=== PATIENT | male | born 1965 | race Caucasian/White ===

== ENCOUNTER 2022-01-21 10:08 | Emergency (ER) | payer BC, MEDICAID ==
[2022-01-21] MEDS ORDERED: Cyclobenzaprine 10 MG Tab PO ONE (10:09)
[2022-01-21 11:30] LABS: AMPHETAMINES,URINE NEGATIVE (NEGATIVE); BARBITURATES,URINE NEGATIVE (NEGATIVE); BENZODIAZEPINE,URINE NEGATIVE (NEGATIVE); MDMA (ECSTASY), URINE NEGATIVE (NEGATIVE); METHADONE,URINE NEGATIVE (NEGATIVE); METHAMPHETAMINES,URINE NEGATIVE (NEGATIVE); OPIATES,URINE NEGATIVE (NEGATIVE); OXYCODONE,URINE NEGATIVE (NEGATIVE); PHENCYCLIDINE,URINE NEGATIVE (NEGATIVE); TCA,URINE NEGATIVE (NEGATIVE)
[2022-01-21] MEDS ORDERED: predniSONE 20 MG Tab PO ONE (11:46)
[2022-01-21] MEDS ORDERED: Cyclobenzaprine 10 MG Tab ONE (11:56)
== END 2022-01-21 12:13 | disposition home or self-care (01) ==
LOC: DL.ED 10:08
DX: M62.838 Other muscle spasm (principal); K02.9 Dental caries, unspecified; G89.29 Other chronic pain; M54.9 Dorsalgia, unspecified; F17.210 Nicotine dependence, cigarettes, uncomplicated
CPT/HCPCS: 80305; 99283; A9270; J7512

== ENCOUNTER 2022-08-02 19:05 | Emergency (ER) | payer BC ==
[2022-08-02] MEDS ORDERED: Sodium Chloride 0.9% 1,000 ML IV ONE (19:35)
[2022-08-02] MEDS ORDERED: Iopamidol 612 MG/ML 100 ML Bottle IVPUSH ONE (19:35)
[2022-08-02] MEDS ORDERED: fentaNYL 100 MCG/2 ML SDV IVPUSH ONE ×2 (19:36→20:29)
[2022-08-02] MEDS ORDERED: Sodium Chloride 0.9% 10 ML Syringe FLUSH PRN (19:36)
[2022-08-02 20:12] LABS: ANION GAP 7.8 mEq/L (7-13)
== END 2022-08-02 21:17 | disposition home or self-care (01) ==
LOC: DL.ED 19:05
DX: K59.00 Constipation, unspecified (principal); Z79.82 Long term (current) use of aspirin
CPT/HCPCS: 36415; 74177; 80053; 81003; 83605; 85025; 96361; 96374; 96376; 99284; J3010; J3490; J7030; Q9967

== ENCOUNTER 2022-09-03 15:34 | Emergency (ER) | payer BC ==
[2022-09-03 16:14] LABS: AMPHETAMINES,URINE NEGATIVE (NEGATIVE); BARBITURATES,URINE NEGATIVE (NEGATIVE); BENZODIAZEPINE,URINE NEGATIVE (NEGATIVE); MDMA (ECSTASY), URINE NEGATIVE (NEGATIVE); METHADONE,URINE NEGATIVE (NEGATIVE); METHAMPHETAMINES,URINE NEGATIVE (NEGATIVE); OPIATES,URINE NEGATIVE (NEGATIVE); OXYCODONE,URINE NEGATIVE (NEGATIVE); PHENCYCLIDINE,URINE NEGATIVE (NEGATIVE); TCA,URINE NEGATIVE (NEGATIVE)
[2022-09-03] MEDS ORDERED: Sodium Chloride 0.9% 10 ML Syringe FLUSH PRN (16:25)
[2022-09-03 17:02] LABS: ANION GAP 11.1 mEq/L (7-13); CHLORIDE,CL 104 mmol/L (98-107); SODIUM,NA 142 mmol/L (136-145)
[2022-09-03 17:04] LABS: ESTIMATED GFR 98 mL/min (>=60)
== END 2022-09-03 18:05 | disposition home or self-care (01) ==
LOC: DL.ED 15:34
DX: R33.9 Retention of urine, unspecified (principal); F17.210 Nicotine dependence, cigarettes, uncomplicated
CPT/HCPCS: 36415; 51702; 76775; 80053; 80305-QW; 80307; 81003; 83605; 83735; 85025; 86140; 99283; 99284

== ENCOUNTER 2023-02-02 15:20 | Emergency (ER) | payer BC ==
[2023-02-02] MEDS ORDERED: Amoxicillin/Clavulanate K 875-125 MG Tab PO ONE (15:38)
[2023-02-02] MEDS ORDERED: Bacitracin Oint 1 GM U/D Packet TOP ONE (15:39)
[2023-02-02] MEDS ORDERED: Take Home: Amoxicillin/Clavulanate K 875-125 MG Tab, 6 Tab Pack PO ONE (16:06)
== END 2023-02-02 16:48 | disposition home or self-care (01) ==
LOC: DL.ED 15:20
DX: S51.852A Open bite of left forearm, initial encounter (principal); S50.12XA Contusion of left forearm, initial encounter; M19.90 Unspecified osteoarthritis, unspecified site; F17.210 Nicotine dependence, cigarettes, uncomplicated; Z79.82 Long term (current) use of aspirin; Z79.899 Other long term (current) drug therapy; W54.0XXA Bitten by dog, initial encounter
CPT/HCPCS: 73090; 99283; A9270